=== PATIENT | female | born 1980 | race Caucasian/White ===

== ENCOUNTER 2021-03-10 22:02 | Emergency (ER) | payer SELFPAY ==
[~2021-03-10] VITALS: Ht 175.3 cm; Wt 77.3 kg
[~2021-03-10 22:02] MED LIST: SEROQUEL 200MG200 MG PO; SEROQUEL300 MG PO; ULTRAM 50MG TAB50 MG PO
[2021-03-11 00:40] VITALS: BP 140/80; PULSE 81
== END 2021-03-11 00:48 | disposition home or self-care (01) ==
LOC: COL.ER 22:02
DX: S62.304A Unspecified fracture of fourth metacarpal bone, right hand, initial encounter for closed fracture (principal); F17.210 Nicotine dependence, cigarettes, uncomplicated; F20.9 Schizophrenia, unspecified; F41.9 Anxiety disorder, unspecified; Z79.899 Other long term (current) drug therapy; W01.0XXA Fall on same level from slipping, tripping and stumbling without subsequent striking against object, initial encounter

== ENCOUNTER 2021-04-03 01:19 | Emergency (ER) | payer OTHER ==
[~2021-04-03] VITALS: Ht 170.2 cm; Wt 72.7 kg
[2021-04-03 01:25] VITALS: BP 133/74; PULSE 83; TEMP 97.4
[2021-04-03] MEDS ORDERED: ULTRAM 50MG TAB50 MG PO (02:36)
== END 2021-04-03 02:55 | disposition home or self-care (01) ==
LOC: COL.ER 01:19
DX: S02.401A Maxillary fracture, unspecified side, initial encounter for closed fracture (principal); S01.112A Laceration without foreign body of left eyelid and periocular area, initial encounter; F17.210 Nicotine dependence, cigarettes, uncomplicated; Z23 Encounter for immunization; Y04.0XXA Assault by unarmed brawl or fight, initial encounter

== ENCOUNTER → 2021-05-13 | Outpatient (CLI) | payer OTHER ==
[~2021-05-13] MED LIST changes: +CEPHALEXIN500 M1 PO
== END ==
LOC: MC.RAD 14:00
DX: N63.41 Unspecified lump in right breast, subareolar (principal)

== ENCOUNTER 2021-05-22 03:08 | Emergency (ER) | payer SELFPAY ==
[~2021-05-22] VITALS: Ht 175.3 cm; Wt 68.2 kg
[2021-05-22 03:08] VITALS: PULSE 105; TEMP 97.2
[~2021-05-22 03:08] MED LIST changes: -CEPHALEXIN500 M1 PO
[2021-05-22 03:25] LABS: BASO # 0.1 (0.0-0.2); BASO % 0.6 % (0.0-2.0); EOS % 0.2 % (0-4.0); GRAN # 6.9 (1.4-6.5); GRAN % 69.4 % (42.2-75.2); HEMATOCRIT 32.9 % (37.0-47.0); HEMOGLOBIN 10.6 g/dl (12.5-16.0); LYMPH # 1.9 (1.2-3.4); LYMPH % 18.8 % (20.0-51.0); MEAN CELL VOLUME 85 fl (80.0-100.0); MEAN CORPUSCULAR HEMOGLOBIN 27 pg (27.0-31.0); MEAN CORPUSCULAR HGB CONC 32 g/dl (33.0-37.0); MEAN PLATELET VOLUME 10.4 fl (7.4-10.4); MONO # 1.1 (0.1-0.6); MONO % 10.6 % (1.7-9.3); PLATELET COUNT 268 K/mm3 (130-400); RED BLOOD COUNT 3.88 M/mm3 (4.10-5.30); REDCELL DISTRIBUTION WIDTH-CV 18.6 % (11.5-14.5)
[2021-05-22 03:36] LABS: ALANINE AMINOTRANSFERASE 36 U/L (4-34); ALBUMIN 4.7 gm/dL (3.5-5.0); ALKALINE PHOSPHATASE 39 U/L (50-136); ANION GAP 10 mmol/L (7-16); AST,SGOT 65 U/L (15-37); BILIRUBIN,TOTAL 0.8 mg/dL (0.0-1.0); BLOOD UREA NITROGEN 16 mg/dL (7-17); CALCIUM 9.6 mg/dL (8.4-10.2); CARBON DIOXIDE 23 mmol/L (22-30); CHLORIDE 105 mmol/L (98-107); CREATININE, serum 0.62 (0.52-1.25); GLUCOSE 106 mg/dL (74-106); POTASSIUM 3.3 mmol/L (3.4-5.0); SODIUM 138 mmol/L (137-145); TOTAL PROTEIN 8.1 gm/dL (6.4-8.2)
[2021-05-22 03:37] LABS: ACETAMINOPHEN < 10 ug/mL (10-30); ALCOHOL(ethanol),MEDICAL < 10 mg/dL; SALICYLATE < 1.0 mg/dL
[2021-05-22 04:04] LABS: COLLECTION METHOD CLEAN CATCH
[2021-05-22 04:11] LABS: MUCOUS Present /lpf; PH 6 (5-8); SQUAMOUS EPITHELIAL 20-50 /hpf; URINE APPEARANCE Cloudy; URINE BACTERIA Rare /hpf; URINE BILIRUBIN Negative (NEGATIVE); URINE BLOOD 1+ (NEGATIVE); URINE COLOR Yellow; URINE GLUCOSE Negative (NEGATIVE); URINE KETONE 1+ (NEGATIVE); URINE LEUKOCYTE ESTERASE Negative (NEGATIVE); URINE NITRATE Negative (NEGATIVE); URINE PROTEIN(semi-quant) 1+ (NEGATIVE); URINE UROBILINOGEN Negative (NEGATIVE)
[2021-05-22 04:47] LABS: TRICYCLIC ANTIDEPRESS URINE NEGATIVE
== END 2021-05-22 05:12 | disposition home or self-care (01) ==
LOC: COL.ER 03:08
PROVIDERS: Emergency Medicine
DX: F60.0 Paranoid personality disorder (principal); F20.9 Schizophrenia, unspecified; F17.200 Nicotine dependence, unspecified, uncomplicated; Z79.899 Other long term (current) drug therapy

== ENCOUNTER 2021-05-24 12:28 | Emergency (ER) | payer SELFPAY ==
[~2021-05-24] VITALS: Ht 162.6 cm; Wt 70.5 kg
[2021-05-24 13:16] VITALS: BP 140/69
[2021-05-24] MEDS ORDERED: CEPHALEXIN500 M1 PO (14:40)
[2021-05-24 14:55] VITALS: PULSE 74
== END 2021-05-24 14:55 | disposition home or self-care (01) ==
LOC: COL.ER 12:28
DX: M79.674 Pain in right toe(s) (principal); F25.9 Schizoaffective disorder, unspecified; F17.210 Nicotine dependence, cigarettes, uncomplicated; Z79.899 Other long term (current) drug therapy